=== PATIENT | male | born 1975 | race Caucasian/White ===

== ENCOUNTER 2024-12-16 05:25 | Emergency (ER) | payer SELFPAY ==
--- NOTE | ~2024-12-16 | XR_ITS ---
EXAMINATION: XR chest 2V 12/16/2024 06:59 INDICATION: Hypertension. Numbness. PROCEDURE: 2 view chest COMPARISON: No prior studies for comparison. FINDINGS: The lungs are clear. The cardiomediastinal silhouette is within normal limits. There are no pleural effusions. There is no pneumothorax suspected. IMPRESSION: 1: NO ACUTE CARDIOPULMONARY DISEASE. Reviewed, dictated and finalized at location A.
--- NOTE | 2024-12-16 05:31 | ECG_ITS ---
Test Date: 2024-12-16 05:36:34 Measurements Intervals [place] Rate: 115 P: 57 FL: 139 QRS: 28 QRSD: 112 T: 38 QT: 338 QTc: 469 Interpretive Statements SINUS TACHYCARDIA NONSPECIFIC REPOL ABNORMALITY, INF-LAT LEADS No previous ECG available for comparison Electronically Signed On 12-17-2024 15:43:29 CDT by Michael Rivera M.D.
[2024-12-16 05:32] VITALS: BP 176/98; PULSE 114; RESP 18; TEMP 36.3; O2SAT 99
[2024-12-16 05:51] LABS: Hematocrit 44.8 % (42.0-52.0); Hemoglobin 15.3 g/dL (14.0-18.0); Immature Granulocyte Percent A 0.4 % (0-0.5); Lymphocytes Absolute Auto 2.96 K/mm3 (0.9-3.2); Mean Corpuscular HGB Conc 34.2 g/dl (32-36); Mean Corpuscular Hemoglobin 29.9 pg (26-34); Mean Corpuscular Volume 87.7 fl (80-100); Nucleated Red Blood Cells Absolute Auto 0.000 K/mm3 (0.0-0.012); Nucleated Red Blood Cells Perc 0.0 % (0.0-0.2); Platelet Count Result 378 k/mm3 (150-375); Red Blood Count 5.11 M/mm3 (4.6-6.20); White Blood Count 9.7 K/mm3 (4.5-10.0)
[2024-12-16 06:05] LABS: INR 1.0; Partial Thromboplastin Time 28.8 Seconds (22.3-36.8); Prothrombin Time 13.3 Seconds (11.1-14.7)
[2024-12-16 06:24] LABS: Troponin I < 0.012 ng/mL (0.000-0.034)
[2024-12-16 06:26] LABS: Alanine Aminotransferase 29 U/L (6-50); Albumin Level 4.7 g/dL (3.5-5.1); Alkaline Phosphatase 60 U/L (38-126); Anion Gap 15 mmol/L (4-12); Aspartate Amino Transferase 39 U/L (17-59); Bilirubin,Total 1.3 mg/dL (0.2-1.3); Blood Urea Nitrogen 15 mg/dL (9-20); Calcium 9.4 mg/dL (8.4-10.2); Carbon Dioxide 17 mmol/L (22-30); Chloride 100 mmol/L (98-107); Estimated CRCL calculation 96 ml/min; Estimated Glomerular Filt Rate > 60; Glucose 130 mg/dL (65-110); Lipase 64 U/L (23-300); Potassium 3.2 mmol/L (3.4-5.0); Sodium 132 mmol/L (137-145); Total Protein 8.0 g/dL (6.3-8.2)
[2024-12-16 07:51] VITALS: BP 155/92; PULSE 97; RESP 16; TEMP 36.4; O2SAT 100
[2024-12-16 07:57] VITALS: PULSE 93
--- NOTE | 2024-12-16 08:22 | ECG_ITS ---
Test Date: 2024-12-16 08:29:07 Measurements Intervals [place] Rate: 82 P: 35 TX: 139 QRS: 14 QRSD: 114 T: 28 QT: 373 QTc: 437 Interpretive Statements SINUS RHYTHM NONSPECIFIC ST- T WAVE CHANGES Compared to ECG 12/16/2024 05:36:34 NO SIGNIFICANT CHANGE Electronically Signed On 12-17-2024 15:45:08 CDT by Michael Rivera M.D.
[2024-12-16 08:28] VITALS: BP 150/82; PULSE 83; RESP 12; O2SAT 98
--- OUTSIDE RECORDS SUMMARY | 2024-12-16 08:30 | XMS_ITS | Clinical Summary ---
Author Organization [facility] Address [address] [facility] [place] [address] Care Team Providers Care Plastics Production Machine Operator Name Role Phone Alexi Johnson Primary Care Provider + Iasel Melton MD Unavailable [phone] Glo Batres MD Unavailable Source Comments [facility],non-owned Affiliates and Associated Physician Practices is amultiple site organization consisting of ambulatory clinics and hospital sitesin [place], [place] and [place]. This disclosure is being madepursuant to the Care Everywhere program and may not contain all information available regarding this patient. Last updated 18.[facility] Allergies No known active allergies Medications * Be aware that medications may not be up to date on this document. Alwaysverify current medications with the patient. losartan-hydroCH LOROthiazide (Hyzaar) 100-25 MG tablet Take 1 tablet by mouth once daily 90 tablet 3 05/24/2024 Active Active Problems Problem Noted Date Diagnosed Date Essential hypertension 09/06/2016 Immunizations Immunization Administration Dates Next Due TDAP (7yrs+) 09/24/2010 Family History Medical History Relation Name Comments CAD (Coronary Artery Disease) Father anomalous coronary artery Relation Name Status Comments Father Alive Mother Alive Social History Tobacco Use Types Packs/Day Years Used Date Smoking Tobacco: Some Days Cigars Smokeless Tobacco: Never Alcohol Use Standard Drinks/Week Comments Yes 0 (1 standard drink = 0.6 oz pur e alcohol) several times per week Sex and Gender Information Value Date Recorded Sex Assigned at Not on file 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 Gender Identity Not on file Sexual Orientation Not on file 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 Not on file Not on file Last Filed Vital Signs Vital Sign Reading Time Taken Comments Blood Pressure 134/84 02/27/2024 3:40 PM CDT Pulse 70 02/27/2024 3:40 PM CDT Temperature 37.1 C (98.7 F) 11/13/2019 8:37 AM CDT Respiratory Rate 18 11/13/2019 8:37 AM CDT Oxygen Saturation 97% 02/27/2024 3:40 PM CDT Inhaled Oxygen Concentration - - Weight 108 kg (238 lb) 02/27/2024 3:40 PM CDT Height 182.9 cm (6') 02/27/2024 3:40 PM CDT Body Mass Index 32.28 02/27/2024 3:40 PM CDT Plan of Treatment Upcoming Encounters Date Type Department Care Team (Late st Contact Info) Description 02/28/2025 3:10 PM CDT Office Visit [facility] [address] [place] [address] Isael Melton MD [address] [facility] [address] [place] [address] [phone] (Work) Health Maintenance Due Date Last Done Comments COLOGUARD (AGES 45-75) - COLON CA SCREENING 1977 COLON MONITORING 1977 COLONOSCOPY - COLON CA SCREENING 1977 CT COLONOGRAPHY - COLON CA SCREENING 1977 Colorectal Cancer Screening 1977 FIT - COLON CA SCREENING 1977 FLEX SIG - COLON CA SCREENING 1977 HIV SCREENING 1992 HEPATITIS C SCREENING 07/13/1995 HEPATITIS B VACCINE (1 of 3 - 19+ 3-dose series) 1996 PNEUMOCOCCAL VACCINE (1 of 2 - PCV) 1996 LIPID TESTING 10/19/2015 10/18/2010 DTAP/TDAP/TD VACCINES (2 - Td or Tdap) 09/24/2020 09/24/2010 COVID-19 VACCINE ( season) 2024 DEPRESSION SCREENING 05/26/2024 INFLUENZA VACCINE (#1) 2025 SCREENING FOR DIABETES 03/16/2027 , 10/29/2021, 11/30/2018, Additional history exists ZOSTER VACCINE (1 of 2) 2027 HIB VACCINE Aged Out No longer eligi ble based on patient's age to complete this topic HPV VACCINE Aged Out No longer eligi ble based on patient's age to complete this topic MENINGOCOCCAL (Group B) VACCINE SHARED DECISION-MAKING Aged Out No longer eligible based on patient's age to complete this topic MENINGOCOCCAL GROUPS A/C/Y/W VACCINE Aged Out No longer eligible based on patient's age to complete this topic Procedures Procedure Name Priority Date/Time Associated Diagnosis Comments BASIC METABOLIC PANEL (CALCIUM TOTAL) Routine 03/16/2024 3:17 PM CDT Essential hypertension LIPID PROFILE Routine 10/18/2010 8:22 AM CDT Routine general medical examination at a health care facility from Last 3 Months or Most Recently Relevant to Health Maintenance Results * BASIC METABOLIC PANEL (CALCIUM TOTAL) (03/16/2024 3:17 PM CDT) Glucose 96 70 - 99 mg/dL [facility] ACCOUNT BILL BUN 11 6 - 24 mg/dL [facility] ACCOUNT BILL Creatinine 1.02 0.76 - 1.27 mg/dL [facility] ACCOUNT BILL eGFR by CKD-EPI 92 >59 mL/min/1.7 3 [facility] ACCOUNT BILL BUN/Creatinine Ratio 11 9 - 20 [facility] ACCOUNT BILL Sodium 138 134 - 144 mmol/L [facility] ACCOUNT BILL Potassium 4.3 3.5 - 5.2 mmol/L [facility] ACCOUNT BILL Chloride 101 96 - 106 mmol/L [facility] ACCOUNT BILL CO2 22 20 - 29 mmol/L [facility] ACCOUNT BILL Calcium 9.5 8.7 - 10.2 mg/dL [facility] ACCOUNT BILL Blood BLOOD SPECIMEN / Unknown 03/16/2024 3:17 PM CDT 03/16/2024 Narrative [facility] ACCOUNT BILL - 03/17/2024 8:11 AM CDT Performed at: 01 - [facility] [address] [place], [place] [id number] Radio Board Operator: Clarke Lewis PhD, Phone: [phone] Isael Melton MD LAB - CHEMISTRY ORDERABLES Fi nal Result Performing Organization Address [facility]/ZIP Co de Phone Number [facility] ACCOUNT BILL [address] [place] [address] * (ABNORMAL) LIPID PROFILE (10/18/2010 8:22 AM CDT) Cholesterol 201(H) 100 - 199 mg/dL [facility] ACCOUNT BILL Triglycerides 62 0 - 149 mg/dL [facility] ACCOUNT BILL HDL Cholesterol 51 >39 mg/dL [facility] ACCOUNT BILL Comment: According to ATP-III Guidelines, HDL-C >59 mg/dL is considered a negative risk factor for CHD. VLDL Calculated 12 5 - 40 mg/dL [facility] ACCOUNT BILL LDL Calculated 138(H) 0 - 99 mg/dL [facility] ACCOUNT BILL BLOOD SPECIMEN / Unknown 10/18/2010 8:22 AM CDT 10/18/2010 6:09 PM CDT Narrative Resulting Agency Comment [facility] [address] [facility] [id number] Alexi Johnson DO LAB - CHEMISTRY ORDERABL ES Final Result Performing Organization Address [facility] Co de Phone Number [facility] ACCOUNT BILL [address] [place] [address] from Last 3 Months or Most Recently Relevant to Health Maintenance Insurance [facility] Care Teams Plastics Production Machine Operator Relationship Specialty Start Date End Date Alexi Johnson DO [address] [place] [id number] PCP - General 09/05/08 Isael Melton MD [address] [place] [address] [phone] (Work) Cardiovascular Disease 01/31/15 Glo Batres MD [address] [place] [address] Vascular Surgery 01/31/15
--- OUTSIDE RECORDS SUMMARY | 2024-12-16 08:30 | XMS_ITS | Encounter Summary ---
Author Organization [employer] Address 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
--- OUTSIDE RECORDS SUMMARY | 2024-12-16 08:30 | XMS_ITS | Clinical Summary ---
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
--- OUTSIDE RECORDS SUMMARY | 2024-12-16 08:30 | XMS_ITS | Referral Summary ---
Author Organization [facility] Address [address] [place] [address] Care Team Providers Care Property Master Name Role Phone Unknown, Notinfile Primary Care Provider Unavail able Allergies No known active allergies Medications losartan-hydroc hlorothiazide (HYZAAR) 100-25 mg per tablet Take 1 tablet by mouth daily 05/13/2023 Active benzonatate (TESSALON) 100 mg capsuleIndicati ons:Cough Take 1 capsule (100 mg total) by mouth 3 (three) times a day as needed for cough 42 capsule 05/24/2023 Active Active Problems No known active problems Social History Tobacco Use Types Packs/Day Years Used Date Smoking Tobacco: Every Day Cigars Alcohol Use Standard Drinks/Week Comments Yes 10 (1 standard drink = 0.6 oz pu re alcohol) Personal Safety Answer Date Recorded Getting School Help Needed Not on file 05/24 Sex and Gender Information Value Date Recorded Sex Assigned at Not on file Legal Sex Male 10:35 AM SANITIZER Gender Identity Not on file Sexual Orientation Not on file Last Filed Vital Signs Vital Sign Reading Time Taken Comments Blood Pressure 122/72 05/24/2023 4:15 PM SANITIZER Pulse 79 05/24/2023 4:15 PM SANITIZER Temperature 37.6 C (99.7 F) 05/24/2023 4:15 PM SANITIZER Respiratory Rate 16 05/24/2023 4:15 PM SANITIZER Oxygen Saturation 98% 05/24/2023 4:15 PM SANITIZER Inhaled Oxygen Concentration - - Weight 102.1 kg (225 lb) 05/24/2023 4:15 PM SANITIZER Height 180.3 cm (5' 11) 05/24/2023 4:15 PM SANITIZER Body Mass Index 31.38 05/24/2023 4:15 PM SANITIZER Plan of Treatment Not on file Insurance [facility] H[facility]/PPO Address: [address] [address] [place] [address] Care Teams Property Master Relationship Specialty Start Date End Date Unknown, Notinfile PCP - General 05/24/23
--- OUTSIDE RECORDS SUMMARY | 2024-12-16 08:30 | XMS_ITS | Encounter Summary ---
Author Organization [facility] Address [address] [place] [address] Care Team Providers Care Oncology Radiation Physician Name Role Phone Alexi Johnson Primary Care Provider + Isael Melton MD Unavailable [phone] Glo Batres MD Unavailable Encounter Details Date Type Department Care Team (Late st Contact Info) Description 08/13/2013 Therapy Visit [facility] [address] [place] [address] Unknown, Provider Social History Tobacco Use Types Packs/Day Years Used Date Smoking Tobacco: Never Smokeless Tobacco: Never Alcohol Use Standard Drinks/Week Comments Not Asked 0 (1 standard drink = 0.6 oz pur e alcohol) Sex and Gender Information Value Date Recorded Sex Assigned at Not on file 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 Gender Identity Not on file Sexual Orientation Not on file 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 Not on file Not on file documented as of this encounter Plan of Treatment Upcoming Encounters Date Type Department Care Team (Late Contact Info) Description 02/28/2025 3:10 PM CDT Office Visit [facility] [address] [place] [address] Isael Melton MD [address] [facility] [address] [place] [address] [phone] (Work) documented as of this encounter Visit Diagnoses Not on filedocumented in this encounter Care Teams Oncology Radiation Physician Relationship Specialty Start Date End Date Alexi Johnson DO [address] [place] [address] PCP - General 09/05/08 Isael Melton MD [address] [facility] [address] [place] [address] [phone] (Work) Cardiovascular Disease 01/31/15 Glo Batres MD [address] [facility] [address] [place] [address] Vascular Surgery 01/31/15 documented as of this encounter
--- OUTSIDE RECORDS SUMMARY | 2024-12-16 08:30 | XMS_ITS | Encounter Summary ---
Author Organization [employer] Address 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
--- OUTSIDE RECORDS SUMMARY | 2024-12-16 08:30 | XMS_ITS | Encounter Summary ---
Author Organization [facility] Address [address] [place] [address] Care Team Providers Care Physics Instructor Name Role Phone Alexi Johnson Primary Care Provider + Isael Melton MD Unavailable [phone] Glo Batres MD Unavailable Encounter Details Date Type Department Care Team (Late Contact Info) Description 07/19/2013 [facility] Outpatient Visit [facility] [address] [place] [address] Unknown, Provider Social History Tobacco Use Types Packs/Day Years Used Date Smoking Tobacco: Never Smokeless Tobacco: Never Alcohol Use Standard Drinks/Week Comments Not Asked 0 (1 standard drink = 0.6 oz pur e alcohol) Sex and Gender Information Value Date Recorded Sex Assigned at Not on file 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 Gender Identity Not on file Sexual Orientation Not on file 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 Not on file Not on file documented as of this encounter Plan of Treatment Upcoming Encounters Date Type Department Care Team (Late Contact Info) Description 02/28/2025 3:10 PM CDT Office Visit [facility] Health Heart & Vascular Care [address] [place] [address] Isael Melton MD [address] [facility] [address] [place] [address] [phone] (Work) documented as of this encounter Visit Diagnoses Not on filedocumented in this encounter Care Teams Physics Instructor Relationship Specialty Start Date End Date Alexi Johnson DO [address] [place] [address] PCP - General 09/05/08 Isael Melton MD [address] [facility] [address] [place] [address] [phone] (Work) Cardiovascular Disease 01/31/15 Glo Batres MD [address] [facility] [address] [place] [address] Vascular Surgery 01/31/15 documented as of this encounter
--- OUTSIDE RECORDS SUMMARY | 2024-12-16 08:30 | XMS_ITS | Encounter Summary ---
Author Organization [employer] Address 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
--- OUTSIDE RECORDS SUMMARY | 2024-12-16 08:30 | XMS_ITS | Encounter Summary ---
Author Organization [employer] Address 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
--- OUTSIDE RECORDS SUMMARY | 2024-12-16 08:30 | XMS_ITS | Clinical Summary ---
Author Organization [facility] Address [address] [place] [address] Care Team Providers Care Final Inspector Motorcyles Name Role Phone Unknown, Notinfile Primary Care [...] Active Active Problems No known active problems Medical History Medical History Date Comments Hypertension Social History Tobacco Use Types Packs/Day Years Used Date Smoking Tobacco: Every Day Cigars Alcohol Use Standard Drinks/Week Comments Yes 10 (1 standard drink = 0.6 oz pu re alcohol) Personal Safety Answer Date Recorded Getting School Help Needed Not on file 05/24 Sex and Gender Information Value Date Recorded Sex Assigned at Not on file Legal Sex Male 10:35 AM BAG MENDER Gender Identity Not on file Sexual Orientation Not on file Obstetrics History Last Filed Vital Signs Vital Sign Reading Time Taken Comments Blood Pressure 122/72 05/24/2023 4:15 PM BAG MENDER Pulse 79 05/24/2023 4:15 PM BAG MENDER Temperature 37.6 C (99.7 F) 05/24/2023 4:15 PM BAG MENDER Respiratory Rate 16 05/24/2023 4:15 PM BAG MENDER Oxygen Saturation 98% 05/24/2023 4:15 PM BAG MENDER Inhaled Oxygen Concentration - - Weight 102.1 kg (225 lb) 05/24/2023 4:15 PM BAG MENDER Height 180.3 cm (5' 11) 05/24/2023 4:15 PM BAG MENDER Body Mass Index 31.38 05/24/2023 4:15 PM BAG MENDER Plan of Treatment Health Maintenance Due Date Last Done Comments Colon Cancer Screening-Colonoscopy 1977 Depression Screening 1977 Hepatitis C Screening 1977 Hepatitis B Screening 1995 Regular Well Visit/Exam 18-64 1995 Pneumococcal vaccine <65 (1 of 2 - PCV) 1996 DTaP/Tdap/Td Vaccine (2 - Td or Tdap) 09/24/202006/2010 Covid-19 Vaccine (2 - 2023- season) 2024 Influenza Vaccine (#1) 2025 Insurance [facility] [place] [address] [facility] H[facility]/PPO Address: [address] [address] [place] [address] Care Teams Final Inspector Motorcyles Relationship Specialty Start Date End Date Unknown, Notinfile PCP - General 05/24/23
--- NOTE | 2024-12-16 08:44 | ED_ITS ---
HPI - Chest Pain General Chief Complaint: Recheck/Abnormal Lab/Rx Stated Complaint: HTN, numbness to left side Time Seen by Provider: 12/16/24 07:52 History of Present Illness HPI narrative: Pt says he has had a lot of stress and issues going on recently. Pt says that today while driving to work he had some tightness in his chest and some tingling in the left side of his neck which resolved after a few minutes and the had tingling in fingertips. Pt says the neck numbness has resolved. Pt still has some tingling to finger. Pt admits that he is anxious and believes this could be the issue. Related Data Allergies Allergy/AdvReac Type Severity Reaction Status Date / Time No Known Allergies Allergy Verified 12/16/24 07:54 Review of Systems 2 Review of Systems: All systems reviewed & are unremarkable except as noted in HPI and below Exam 2 Const: General: cooperative, healthy appearing and no acute distress O rientation/consciousness: patient oriented x3 Limitations: no limitations HENMT: Head: normal to inspection Neck: Neck: normal visual inspection, full ROM, no lymphadenopathy and no meningeal signs Chest: Chest palpation & inspection: normal inspection of the chest Resp: Effort & Inspection: normal respiratory effort and able to speak in complete sentences Auscultation: clear to auscultation bilaterally Cardio: Rate: regular rate Rhythm: regular rhythm GI: Inspection: normal to inspection Auscultation: normal bowel sounds Back/Spine/Pelvis: Back: no CVA tenderness Skin: General skin exam: normal color and no rashes or lesions noted Neuro: General: patient oriented x3 Cranial nerves: Yes CN's II-XII intact bilaterally Cognition (Neuro): normal cognition Speech: normal speech M otor exam (neuro): 5/5 motor strength present throughout Sensory Exam: normal sensation Extrem: General: normal to inspection, full ROM and no clubbing, cyanosis or edema Psych: Appearance: grossly normal Mental Status: mental status grossly normal Affect: Anxious affect present Attitude: cooperative Course Vital Signs Vital signs: Vital Signs Temperature 97.4 F L 12/16/24 05:32 Pulse Rate 114 H 12/16/24 05:32 Respiratory Rate 18 12/16/24 05:32 Blood Pressure 176/98 H 12/16/24 05:32 Pulse Oximetry 99 12/16/24 05:32 Temperature 97.5 F L 12/16/24 07:51 Pulse Rate 82 12/16/24 09:49 Respiratory Rate 15 12/16/24 09:49 Blood Pressure 144/76 H 12/16/24 09:49 Pulse Oximetry 97 12/16/24 09:49 Oxygen Delivery Room Air 12/16/24 07:51 MDM - Chest Pain MDM Narrative Medical decision making narrative: Pt presents with numbness to neck and finger tips and chest tightness. Likely anxiety and pt agrees but will do cardiac work up to rule out acs. trop neg x 2 ekg #2 normal. likely anxiety. home on a few ativan. Differential Diagnosis Differential diagnosis: Likely pneumothorax, unstable angina pectoris, atypical chest pain, st elevation myocardial infarction, costochondritis, chest pain and other (anxiety) Lab Data 12/16/24 05:45 12/16/24 05:45 Labs: Lab Results 12/16/24 12/16/24 Range/Units 05:45 08:29 WBC 9.7 (4.5-10.0) K/mm3 RBC 5.11 (4.6-6.20) M/mm3 Hgb 15.3 (14.0-18.0) g/dL Hct 44.8 (42.0-52.0) % MCV 87.7 (80-100) fl MCH 29.9 (26-34) pg MCHC 34.2 (32-36) g/dl RDW 13.7 (11.5-14.5) % Plt Count 378 H (150-375) k/mm3 MPV 9.7 (7.4-10.4) fl Immature Gran % (Auto) 0.4 (0-0.5) % Neut % (Auto) 54.9 (45.5-73.1) % Lymph % (Auto) 30.6 (18.3-44.2) % [place] % (Auto) 11.8 H (2.6-8.5) % Eos % (Auto) 1.7 (0-4.4) % Baso % (Auto) 0.6 (0.2-1.2) % Lymph # (Auto) 2.96 (0.9-3.2) K/mm3 [place] # (Auto) 1.1 H (0.1-0.6) K/mm3 Eos # (Auto) 0.2 (0-0.3) K/mm3 Baso # (Auto) 0.1 (0.0-0.1) K/mm3 Abs Immat Gran (auto) 0.04 H (0.00-0.031) K/mm3 Absolute Neuts (auto) 5.3 (1.3-6.7) K/mm3 Absolute Nucleated RBC 0.000 (0.0-0.012) K/mm3 Nucleated RBC % 0.0 (0.0-0.2) % PT 13.3 (11.1-14.7) Seconds INR 1.0 APTT 28.8 (22.3-36.8) Seconds Sodium 132 L (137-145) mmol/L Potassium 3.2 L (3.4-5.0) mmol/L Chloride 100 (98-107) mmol/L Carbon Dioxide 17 L (22-30) mmol/L Anion Gap 15 H (4-12) mmol/L BUN 15 (9-20) mg/dL Creatinine 1.04 (0.7-1.3) mg/dL Estim Creat Clear Calc 96 ml/min Estimated GFR > 60 (59 - ) Glucose 130 H (65-110) mg/dL Calcium 9.4 (8.4-10.2) mg/dL Total Bilirubin 1.3 (0.2-1.3) mg/dL AST 39 (17-59) U/L ALT 29 (6-50) U/L Alkaline Phosphatase 60 (38-126) U/L Troponin I < 0.012 < 0.012 (0.000-0.034) ng/mL Total Protein 8.0 (6.3-8.2) g/dL Albumin 4.7 (3.5-5.1) g/dL Lipase 64 (23-300) U/L ECG Data EKG #1: Interpretation: st [id number] with some st depression lateral and inferior leads likely rate dependent EKG #2: Interpretation: nsr rate [address] changes Discharge Plan Discharge Clinical Impression: Anxiety Patient Disposition: Home Condition: Improved Instructions: Antibiotic Form, Anxiety (ED) Patient Language: Scottish Prescriptions: New lorazepam [Ativan] 0.5 mg tablet 0.5 mg PO TID PRN (Reason: anxiety) Qty: 10 0RF Follow-up/Referrals: -PHYSICIAN,PATIENT PLACEMENT COORDINATOR [Other]
[2024-12-16 09:09] LABS: Troponin I < 0.012 ng/mL (0.000-0.034)
[2024-12-16 09:24] VITALS: BP 142/84; PULSE 90; RESP 13; O2SAT 99
[2024-12-16 09:49] VITALS: BP 144/76; PULSE 82; RESP 15; O2SAT 97
== END 2024-12-16 09:52 | disposition home or self-care (01) ==
PROVIDERS: Student in an Organized Health Care Education/Training Program; Emergency Provider Emergency Medicine
DX: F41.9 Anxiety disorder, unspecified (principal)
CPT/HCPCS: 36415; 71046; 80053; 83690; 84484; 85025; 85610; 85730; 93005; 99284